=== PATIENT | male | born 1990 | race Caucasian/White ===

== ENCOUNTER 2016-11-23 20:34 | Emergency (ER) | payer MEDICAID ==
[2016-11-23 20:59] VITALS: BMI 20.1
[2016-11-23 21:01] VITALS: BP 107/74; PULSE 73; RESP 16; TEMP 98.9; O2SAT 98
[2016-11-23] MEDS ORDERED: DiphenhydrAMINE 50 mg/ml Inj IVP ONE (22:02)
--- NOTE | 2016-11-23 22:03 | ED PDOC ---
Arrival/HPI - General Chief Complaint: Headache Time Seen by Provider: 11/23/16 21:38 Historian: Patient - History of Present Illness Narrative History of Present Illness (Text): 11/23/16 22:00 Rogers Valencia is a 26 year old male, who presents to the emergency department complaining of headache discomfort associated with slight nausea for past 2 days. Describes quality as a throbbing sensation. States he has not experienced headaches of this quality before. Not the worse headache of patient's life. Denies any fever, chills, dizziness, neck pain, chest pain, difficulty breathing , abdominal pain, back pain, or any other complaints at this time. Time/Duration: < week (2 days ) Symptom Onset: Gradual Symptom Course: Unchanged Severity Level: Mild Activities at Onset: Light Past Medical History - Provider Review Nursing Documentation Reviewed: Yes - Psychiatric Hx Substance Use: No Family/Social History - Physician Review Nursing Documentation Reviewed: Yes Family/Social History: No Known Family HX Smoking Status: Never Smoked Hx Alcohol Use: No Hx Substance Use: No Allergies/Home Meds Allergies/Adverse Reactions: Allergies No Known Allergies Allergy (Verified 11/23/16 20:59) Home Medications: Home Meds Medication Instructions Recorded Confirmed No Known Home Med 11/23/16 11/23/16 Review of Systems - Physician Review All systems were reviewed & negative as marked: Yes - Review of Systems Constitutional: Normal. absent: Fatigue, Fevers Respiratory: Normal. absent: SOB, Cough, Sputum Cardiovascular: Normal. absent: Chest Pain, Palpitations Gastrointestinal: Nausea. absent: Abdominal Pain, Diarrhea, Vomiting Neurological: Headache. absent: Dizziness Psychiatric: Normal Physical Exam Vital Signs Reviewed: Yes Vital Signs Temp Pulse Resp BP Pulse Ox 11/23/16 22:28 16 98 11/23/16 20:59 98.9 F 73 16 107/74 98 Temperature: Afebrile Blood Pressure: Normal Pulse: Regular Respiratory Rate: Normal Appearance: Positive for: Well-Appearing, Non-Toxic, Comfortable Pain Distress: None Mental Status: Positive for: Alert and Oriented X 3 - Systems Exam Head: Present: Atraumatic, Normocephalic Pupils: Present: PERRL Extroacular Muscles: Present: EOMI Conjunctiva: Present: Normal Mouth: Present: Moist Mucous Membranes Neck: Present: Normal Range of Motion. No: Meningeal Signs, MIDLINE TENDERNESS , Paraspinal Tenderness Respiratory/Chest: Present: Clear to Auscultation, Good Air Exchange. No: Respiratory Distress, Accessory Muscle Use Cardiovascular: Present: Regular Rate and Rhythm, Normal S1, S2. No: Murmurs Abdomen: Present: Normal Bowel Sounds. No: Tenderness, Distention, Peritoneal Signs Upper Extremity: Present: Normal Inspection. No: Cyanosis, Edema Lower Extremity: Present: Normal Inspection. No: Edema Neurological: Present: GCS=15, CN II-XII Intact, Speech Normal, Motor Func Grossly Intact, Normal Sensory Function Skin: Present: Warm, Dry, Normal Color. No: Rashes Psychiatric: Present: Alert, Oriented x 3, Normal Insight, Normal Concentration Medical Decision Making ED Course and Treatment: 11/23/16 22:05 Impression: A 26 year old male who presents to the ed complaining of headache discomfort associated with some nausea for past 2 days. Plan: -- CT Head -- Benadryl -- Reglan -- IV fluids Progress Notes: 11/23/16 22:29 Patient is refusing any diagnostics and wants to sign out against medical advice. Patient states he feels better now and wants to leave the emergency department. I advised the patient personally to stay for the completion of treatment, but patient states he aware of the risks and is adamant in his decision. The patient is choosing to leave against medical advice. I have personally explained to the patient that choosing to do so may result in permanent bodily harm or . I have discussed at great length that without further evaluation and monitoring there may be unforeseen circumstances and/or deterioration causing permanent bodily harm or as a result of their choice. The patient is alert, oriented, and shows the mental capacity to make clear decisions regarding the patients health care at this time. The patient continues to wish to leave against medical advice. The patient has been advised that they should return to the emergency room immediately if they change their mind at any time, or if their condition begins to change or worsen in any way.. - RAD Interpretation Radiology Orders: 11/23/16 22:02 HEAD W/O CONTRAST [CT] Stat - Medication Orders Current Medication Orders: Sodium Chloride (Sodium Chloride 0.9%) 1,000 mls @ 100 mls/hr IV .Q10H BORIS Last Admin: 11/23/16 22:23 Dose: Not Given Non-Admin Reason: Patient Refused Discontinued Medications Diphenhydramine HCl (Benadryl) 25 mg IVP ONCE ONE Stop: 11/23/16 22:03 Last Admin: 11/23/16 22:23 Dose: Not Given Non-Admin Reason: Patient Refused Metoclopramide HCl (Reglan) 10 mg IVP ONCE ONE Stop: 11/23/16 22:03 Last Admin: 11/23/16 22:23 Dose: Not Given Non-Admin Reason: Patient Refused - Scribe Statement The provider has reviewed the documentation as recorded by the Amada Chavez Provider Attestation: All medical record entries made by the Amada were at my direction and personally dictated by me. I have reviewed the chart and agree that the record accurately reflects my personal performance of the history, physical exam, medical decision making, and the department course for this patient. I have also personally directed, reviewed, and agree with the discharge instructions and disposition. Disposition/Present on Arrival - Present on Arrival Any Indicators Present on Arrival: No History of DVT/PE: No History of Uncontrolled Diabetes: No Urinary Catheter: No History of Decub. Ulcer: No History Surgical Site Infection Following: None - Disposition Have Diagnosis and Disposition been Completed?: Yes Diagnosis: Headache Disposition: AGAINST MEDICAL ADVICE Disposition Time: 22:32 Condition: STABLE Referrals: Nolvia Murry APN [Primary Care Provider] - Follow up with primary
[2016-11-23] MEDS ORDERED: Sodium Chloride 0.9% 1,000 ML IV SCH (22:15)
== END 2016-11-23 22:28 | disposition left against medical advice (07) ==
LOC: ED 20:34
DX: R51 Headache (principal)